=== PATIENT | male | born 1960 | race Hispanic/Latino ===

== ENCOUNTER 2018-12-30 11:09 | Emergency (ER) | payer SELFPAY ==
[2018-12-30 11:21] VITALS: BP 119/82
[2018-12-30] MEDS ORDERED: NORCO 5/325 PO ONE ×2 (11:36→12:09)
[2018-12-30] MEDS ORDERED: TORADOL IM ONE (11:36)
--- NOTE | 2018-12-30 11:51 | Emergency Department Report ---
ED Back Pain/Injury HPI - General Chief Complaint: Back Pain/Injury Stated Complaint: LOWER BACK PAIN Time Seen by Provider: 12/30/18 11:31 Source: patient, EMS Limitations: No Limitations - History of Present Illness Initial Comments: Mr. Alvarado is a pleasant 58 yo male with lower back pain for 2 days. Sharp achy pain severe gradual onset. No trauma. He feels he may have pulled his back while working. 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 Pain is better when he brings his knees to his chest. No leg weakness or numbness. No bowel or bladder incontinence. MD Complaint: back pain -: Gradual Radiation: none Severity: severe Severity scale (0 -10): 8 Quality: sharp, dull, aching Consistency: constant Improves With: other (certain positions) Worsens With: movement Associated Symptoms: denies other symptoms - Related Data Previous Rx's Medication Instructions Recorded Last Taken Type Cyclobenzaprine [Flexeril] 10 mg PO TID PRN #20 tablet 12/30/18 Unknown Rx HYDROcodone/APAP 5-325 [[place] 1 each PO Q6HR PRN #10 tablet 12/30/18 Unknown Rx 5/325] Ibuprofen 400 mg PO QID 4 Days #16 tablet 12/30/18 Unknown Rx Allergies Allergy/AdvReac Type Severity Reaction Status Date / Time No Known Allergies Allergy Unverified 12/30/18 11:18 ED Review of Systems ROS: Stated complaint: LOWER BACK PAIN Other details as noted in HPI Comment: All other systems reviewed and negative Constitutional: denies: fever, malaise Cardiovascular: denies: chest pain Gastrointestinal: denies: nausea, vomiting Musculoskeletal: back pain Neurological: denies: numbness, paresthesias ED Past Medical Hx - Past Medical History Previous Medical History?: Yes Hx Hypertension: Yes - Surgical History Past Surgical History?: Yes Additional Surgical History: skin graft - Social History Smoking Status: Current Every Day Smoker Substance Use Type: None - Medications Home Medications: Home Medications Medication Instructions Recorded Confirmed Last Taken Type Cyclobenzaprine [Flexeril] 10 mg PO TID PRN #20 tablet 12/30/18 Unknown Rx HYDROcodone/APAP 5-325 [[place] 1 each PO Q6HR PRN #10 tablet 12/30/18 Unknown Rx 5/325] Ibuprofen 400 mg PO QID 4 Days #16 tablet 01/31/19 Unknown Rx ED Physical Exam - General Limitations: No Limitations General appearance: alert, in no apparent distress - Head Head exam: Present: atraumatic, normocephalic - Eye Eye exam: Present: normal appearance - ENT ENT exam: Present: mucous membranes moist - Neck Neck exam: Present: normal inspection. Absent: tenderness - Respiratory Respiratory exam: Present: normal lung sounds bilaterally. Absent: respiratory distress, wheezes, rales, rhonchi - Cardiovascular Cardiovascular Exam: Present: regular rate, normal rhythm. Absent: systolic murmur, diastolic murmur, rubs, gallop - GI/Abdominal GI/Abdominal exam: Present: soft, normal bowel sounds. Absent: distended, tenderness, guarding, rebound - Rectal Rectal exam: Present: deferred - Extremities Exam Extremities exam: Present: normal inspection - Back Exam Back exam: Present: normal inspection, full ROM. Absent: tenderness, CVA tenderness (R), CVA tenderness (L), muscle spasm, paraspinal tenderness - Neurological Exam Neurological exam: Present: alert, oriented X3 - Expanded Neurological Exam Expanded Motor strength exam: RUE: 5, LUE: 5, RLE: 5, LLE: 5 - Psychiatric Psychiatric exam: Present: normal affect, normal mood - Skin Skin exam: Present: warm, dry, intact, normal color. Absent: rash ED Course Vital Signs 12/30/18 11:18 Temperature 97.6 F Pulse Rate 82 Respiratory 18 Rate Blood Pressure 119/82 O2 Sat by Pulse 96 Oximetry ED Medical Decision Making - Medical Decision Making Mr. Alvarado presents via EMS with acute lower back pain. No history of recent trauma. I suspect lumbar strain versus lumbar degenerative disc disease. No red flag such as fever, weight loss, drug abuse, neurological deficits. Given ketorolac and [place] in the ED. Prescribed [place] ibuprofen and Flexeril. Referred to outside clinic. Critical care attestation.: If time is entered above; I have spent that time in minutes in the direct care of this critically ill patient, excluding procedure time. ED Disposition Clinical Impression: Acute lumbar back pain Disposition: DC-01 TO HOME OR SELFCARE Is pt being admited?: No Does the pt Need Aspirin: No Condition: Stable Instructions: Acute Low Back Pain (ED) Prescriptions: Cyclobenzaprine [Flexeril] 10 mg PO TID PRN #20 tablet PRN Reason: Muscle Spasm HYDROcodone/APAP 5-325 [[place] 5/325] 1 each PO Q6HR PRN #10 tablet PRN Reason: Pain Ibuprofen 400 mg PO QID 4 Days #16 tablet Referrals: [facility] [Outside] - 3-5 Days
== END 2018-12-30 11:59 | disposition home or self-care (01) ==
LOC: ED 11:09
DX: M54.5 Low back pain (principal); I10 Essential (primary) hypertension; F17.200 Nicotine dependence, unspecified, uncomplicated
CPT/HCPCS: 96372; 99283; J1885